=== PATIENT | male | born 1995 | race Caucasian/White ===

== ENCOUNTER 2019-05-23 11:00 | Outpatient (CLI) | payer SELFPAY | END 2019-05-23 23:59 | disposition home or self-care (01) | LOC: RAD 11:00 | PROVIDERS: ATTEND Physician Assistant Surgical | DX: S92.311A Displaced fracture of first metatarsal bone, right foot, initial encounter for closed fracture (principal); S92.321A Displaced fracture of second metatarsal bone, right foot, initial encounter for closed fracture; S92.331A Displaced fracture of third metatarsal bone, right foot, initial encounter for closed fracture; S92.341A Displaced fracture of fourth metatarsal bone, right foot, initial encounter for closed fracture; X58.XXXA Exposure to other specified factors, initial encounter; Y93.89 Activity, other specified; Y92.89 Other specified places as the place of occurrence of the external cause; Y99.8 Other external cause status ==